=== PATIENT | female | born 1940 | race Caucasian/White ===

== ENCOUNTER → 2017-10-06 | Outpatient (CLI) | END | disposition home or self-care (01) ==

== ENCOUNTER → 2017-10-27 | Outpatient (CLI) | END | disposition home or self-care (01) ==

== ENCOUNTER 2017-11-10 07:50 | Inpatient (IN) | END 2017-11-14 16:25 | disposition home health service (06) | DRG 470 ==

== ENCOUNTER → 2017-11-24 | Outpatient (CLI) | END | disposition home or self-care (01) ==

== ENCOUNTER → 2017-12-27 | Outpatient (CLI) | END | disposition home or self-care (01) ==

== ENCOUNTER → 2018-04-25 | Outpatient (CLI) | END | disposition home or self-care (01) ==

== ENCOUNTER → 2018-10-26 | Outpatient (CLI) | payer MEDICARE, OTHER ==
[~2018-10-26] MED LIST: ASPI325T30 PO; CALC600T5 PO; LUTE1CAP2 PO; METO-448 PO; MULTI PO; OMEG1CAP90 PO; PHYT500C PO; TERB250T46 PO; [UNRECOGNIZED DRUG - CODE] PO
--- NOTE | 2018-10-27 07:39 | HKNOTE ---
DATE OF SERVICE: REASON FOR VISIT: Followup for left knee and evaluation of the right knee. HISTORY OF PRESENT ILLNESS: This is a pleasant 78-year-old female, . Jane Milligan, who had a left total knee arthroplasty by Dr. Cali last year. She is doing great. No complaints there. She xiao s have a little bit of incisional tenderness, but it gets better and better. She says that she can f unction in full capacity of her left knee without problems. Her right knee, however, has started cau sing her more and more pain over the last few months. No history of injury or trauma to that side an d she is here to discuss the possibility of a right total knee arthroplasty. The right knee causes p ain when going up and down stairs and she is required to take Tylenol for pain. PHYSICAL EXAMINATION: GENERAL: The patient is well-developed, well-nourished, in no acute distress. EXTREMITIES: Her left knee incision is well healed. There is mild edema. No erythema. She is mild ly tender over the incision. Range of motion is 0 to 125. On the right side, skin is intact. There is minimal edema. No erythema. She has tenderness to palpation on the lateral joint line, although it does seem stable. She is neurovascularly intact bilaterally. IMAGING DATA: When reviewing her x-rays of her left knee, her hardware is well aligned without evide nce of failure. On the left side, the left knee does appear to have severe joint space narrowing of the lateral compartment with a valgus deformity. No fracture. ASSESSMENT AND PLAN: The patient is a 77-year-old female with the history of left total knee arthrop lasty doing well, and right knee severe osteoarthritis with pain. The plan is for the patient to con tinue weightbearing as tolerated and continue Tylenol as needed. We discussed the options for her ri ght knee from conservative therapy of physical therapy, cortisone injections, going all the way to rgeer rgical intervention of a total knee arthroplasty. The patient would like to move ahead with a right knee arthroplasty. Dr. Cali discussed the risks and benefits in detail with her including the ris k of infection, need for repeat surgeries, and damage in the anatomy. The patient states she would l amanda to move forward with the right knee arthroplasty. We will need medical clearance for her. The p josesito will be for right knee arthroplasty after medical clearance and will see her back in the office a t two weeks postop. The patient was seen by Dr. Chip Cali and myself, Maryellen Meraz PA-C. Dictated By: MARYELLEN MERAZ PA-C for [facility] Conf#: [id number] DID#: [id number]
--- NOTE | 2018-10-27 16:25 | RADRPT ---
PROCEDURE: Left knee x-ray CLINICAL INDICATION: Pain TECHNIQUE: AP and lateral weightbearing views of the left knee were obtained. COMPARISON: None FINDINGS: Left knee total arthroplasty appears intact. No periprosthetic fracture. Alignment appears normal. Sm all to moderate joint effusion. Diffuse osteopenia. IMPRESSION: Intact left knee total arthroplasty with small to moderate joint effusion. RPTAT:AAJJ Ivanna Robbins, Physician Date Time Electronically viewed and signed by Ivanna Robbins Physician on 10/27/2018 16:25 RF/
--- NOTE | 2018-10-27 16:27 | RADRPT ---
PROCEDURE: Right knee x-ray CLINICAL INDICATION: Pain TECHNIQUE: 3 views of the right knee were obtained. COMPARISON: KNEE 04/25/2018; KNEE 10/06/2017 FINDINGS: No acute fracture or dislocation. Tricompartmental arthrosis with joint space narrowing and marginal osteophyte formation, most pronounced at the lateral compartment where there is advanced joint space loss and subchondral sclerosis. Moderate sized joint effusion. Diffuse osteopenia. IMPRESSION: Tricompartmental degenerative joint disease, most pronounced at the lateral compartment where there i s severe arthrosis. Moderate sized joint effusion. RPTAT:AAJJ Physician Cindi Date Time Electronically viewed and signed by Ivanna Robbins Physician on 10/27/2018 16:26 RF/
== END | disposition home or self-care (01) ==
LOC: HKI 11:18
PROVIDERS: ATTEND Orthopaedic Surgery
DX: M17.11 Unilateral primary osteoarthritis, right knee (principal); Z96.652 Presence of left artificial knee joint
CPT/HCPCS: 73560; 73562; G0463